=== PATIENT | female | born 1965 ===

== ENCOUNTER 2018-01-21 19:46 | Emergency (ER) | payer SELFPAY ==
[2018-01-21 20:00] VITALS: BP 139/82
--- NOTE | 2018-01-21 20:21 | UC ---
Abdominal Pain Female HPI - HPI Summary HPI Summary: This is [facility] documenting for attending Delio Gaytan MD. Pt is a 52 y/o F c/o abdominal pain onset ~1 week ago. Assoc. Sx: CP, bloated/ swollen, nausea, diarrhea, abd pain, diaphoresis. Denies: SOB, melena. Pain is located in the L flank, LL abdominal region. She also reports CP located in the epigastric region which she took omeprazole for, alleviating the pain. PMHx: Thyroid, cardiac ischemia, ventricular tach. Denies Hx of CAD or smoking. - History of Current Complaint Chief Complaint: UCAbdominalPain Stated Complaint: ABDOMINAL PAIN Time Seen by Provider: 01/21/18 20:10 Hx Obtained From: Patient Onset/Duration: Sudden Onset, Lasting Weeks - 1 week, Still Present Severity Currently: Moderate Pain Intensity: 6 Pain Scale Used: 0-10 Numeric Location: Discrete At: LLQ, Epigastric Radiates: Yes Radiates to: Flank - L Aggravating Factor(s): Nothing Alleviating Factor(s): Antacids - Omezaprole Associated Signs and Symptoms: Positive: Diaphoresis, Chest Pain, Nausea, Diarrhea, Other: - abd bloating/swelling Allergies/Adverse Reactions: Allergies Allergy/AdvReac Type Severity Reaction Status Date / Time Cephalosporins Allergy Severe Swelling Verified 01/21/18 20:01 rofecoxib [From Vioxx] Allergy Severe Edema Verified 01/21/18 20:01 Penicillins Allergy Unknown Unknown Verified 01/21/18 20:01 Reaction Details Quinolones Allergy Unknown Unknown Verified 01/21/18 20:01 Reaction Details Home Medications: Home Medications Alverini Citras/Simeticone* PRN 01/21/18 [History] Aspirin TAB* [Aspirin 325 MG TAB*] 325 mg PO DAILY 01/21/18 [History Confirmed 01/21/18] Bromazepam* PRN 01/21/18 [History] Ketoprofen PRN 01/21/18 [History] Levothyroxine TAB* [Synthroid TAB*] 50 mcg PO DAILY 01/21/18 [History Confirmed 01/21/18] Nebivolol HCl [Bystolic] 01/21/18 [History] Omeprazole CAP* [Prilosec CAP* 20 MG] PRN 01/21/18 [History] Rosuvastatin Calcium [Crestor] 10 mg PO DAILY 01/21/18 [History Confirmed ] Temmerit* 01/21/18 [History Confirmed 01/21/18] PMH/Surg Hx/FS Hx/Imm Hx Endocrine History: Thyroid Disease Other Endocrine History: NEG: DM Cardiovascular History: Other Other Cardiovascular History: NEG: CAD, cardiac ischemia, ventricular tach. - Surgical History Surgical History: Yes Surgery Procedure, Year, and Place: JAW BONE SURGERY - Family History Known Family History: Positive: Hypertension, Diabetes Negative: Cardiac Disease - Social History Occupation: Employed Full-time Lives: Alone Alcohol Use: Occasionally Substance Use Type: None Smoking Status (MU): Never Smoked Tobacco Review of Systems Constitutional: Other - POS: diaphoresis Respiratory: Other - NEG: SOB Cardiovascular: Chest Pain Gastrointestinal: Abdominal Pain, Diarrhea, Nausea, Other - POS: Bloating/ swelling Genitourinary: Other - NEG: melena All Other Systems Reviewed And Are Negative: Yes Physical Exam Triage Information Reviewed: Yes Vital Signs: Initial Vital Signs Temp 96.9 F 01/21/18 19:54 Pulse 55 01/21/18 19:54 Resp 16 01/21/18 19:54 BP 139/82 01/21/18 19:54 Pulse Ox 99 01/21/18 19:54 Vital Signs Reviewed: Yes ENT Exam: Normal Neck: Positive: Nontender Respiratory: Positive: Chest non-tender, Lungs clear, Normal breath sounds Cardiovascular: Positive: RRR, No Murmur Abdomen Description: Positive: Nontender, CVA Tenderness (L) Musculoskeletal: Positive: ROM Intact, No Edema Neurological: Positive: Alert Psychological Exam: Normal Skin Exam: Normal Abd Pain Female Course/Dx - Course Course Of Treatment: 52 yr old female with abdominal pain and chest pain. She already took Aspiring 325mg today. She is going to the ER at [facility] for futher evaluation. TORY Joe contacted and report given. - Differential Dx/Diagnosis Provider Diagnoses: abdominal pain. chest pain. hypertension Discharge - Sign-Out/Discharge Documenting (check all that apply): Patient Departure - Discharge Plan Condition: Good Disposition: TRANS HIGHER LVL OF CARE FAC Referrals: No Primary Care Phys,NOPCP [Primary Care Provider] - - Billing Disposition and Condition Condition: GOOD Disposition: Trans Higher Lvl of Care Fac
== END 2018-01-21 20:50 | disposition short-term general hospital (02) ==
LOC: UCEAST 19:46
DX: R10.32 Left lower quadrant pain (principal); R10.13 Epigastric pain; I10 Essential (primary) hypertension; R61 Generalized hyperhidrosis; R11.0 Nausea; R19.7 Diarrhea, unspecified; R00.1 Bradycardia, unspecified; E07.9 Disorder of thyroid, unspecified; Z88.6 Allergy status to analgesic agent; Z88.1 Allergy status to other antibiotic agents; Z88.0 Allergy status to penicillin; Z82.49 Family history of ischemic heart disease and other diseases of the circulatory system; Z83.3 Family history of diabetes mellitus
CPT/HCPCS: 93005; 99203; G0463

== ENCOUNTER 2018-01-21 21:09 | Emergency (ER) | payer SELFPAY ==
[2018-01-21] MEDS ORDERED: Metoclopramide IV* 5 MG/ML 2 ML VIAL IV ONE (21:27)
[2018-01-21] MEDS ORDERED: Ketorolac INJ* 30 MG/ML 1 ML VIAL IV ONE (21:27)
[2018-01-21] MEDS ORDERED: NS 0.9% 1000 ML* 1,000 ML IV ONE (21:28)
--- NOTE | 2018-01-21 21:37 | ED ---
Abdominal Pain/Female - HPI Summary HPI Summary: This is monica Radford documenting for attending Chay Solano MD. This patient is a 52 year old F BIBA from CC to ED with a chief complaint of L flank pain since about 1 week ago, worsened today. The CC is described as feeling like a kidney stone. The patient rates the pain 6/10 in severity. Symptoms alleviated by nothing. Patient reports nausea (after PO, currently resolved). Patient denies vomiting and fever. PMHx of kidney stone (2 years ago) . - History of Current Complaint Chief Complaint: EDAbdPain Stated Complaint: ABD PAIN Time Seen by Provider: 01/21/18 21:17 Hx Obtained From: Patient Onset/Duration: Sudden Onset, Lasting Weeks - 1 week ago, Still Present, Worse Since - worsened today Timing: Weeks - 1 week ago Severity Initially: Moderate Severity Currently: Moderate Pain Intensity: 6 Pain Scale Used: 0-10 Numeric Location: Flank - L flank Aggravating Factor(s): Food - nausea aggravated by PO but is currently resolved Alleviating Factor(s): Nothing Associated Signs and Symptoms: Positive: Other: - Patient reports nausea (after PO, currently resolved). Patient denies vomiting and fever. Allergies/Adverse Reactions: Allergies Allergy/AdvReac Type Severity Reaction Status Date / Time Cephalosporins Allergy Severe Swelling Verified 01/21/18 21:16 rofecoxib [From Vioxx] Allergy Severe Edema Verified 01/21/18 21:16 Penicillins Allergy Unknown Unknown Verified 01/21/18 21:16 Reaction Details Quinolones Allergy Unknown Unknown Verified 01/21/18 21:16 Reaction Details PMH/Surg Hx/FS Hx/Imm Hx Endocrine/Hematology History: Reports: Hx Thyroid Disease - HYPOTHYROID History: Reports: Hx Kidney Stones - Surgical History Surgery Procedure, Year, and Place: JAW BONE SURGERY Infectious Disease History: No Infectious Disease History: Reports: Traveled Outside the [place] in Last 30 Days - [place] - Family History Known Family History: Positive: Hypertension, Diabetes Negative: Cardiac Disease - Social History Alcohol Use: Occasionally Substance Use Type: Reports: None Smoking Status (MU): Never Smoked Tobacco Review of Systems Negative: Fever Positive: Abdominal Pain - L flank pain, Nausea - after PO, currently resolved. Negative: Vomiting All Other Systems Reviewed And Are Negative: Yes Physical Exam - Summary Physical Exam Summary: VITAL SIGNS: Reviewed. GENERAL: Patient is a well-developed and nourished FEMALE who is lying comfortable in the stretcher. Patient is not in any acute respiratory distress. HEAD AND FACE: No signs of trauma. No ecchymosis, hematomas or skull depressions. No sinus tenderness. EYES: PERRLA, EOMI x 2, No injected conjunctiva, no nystagmus. EARS: Hearing grossly intact. Ear canals and tympanic membranes are within normal limits. MOUTH: Oropharynx within normal limits. NECK: Supple, trachea is midline, no adenopathy, no JVD, no carotid bruit, no c- spine tenderness, neck with full ROM. CHEST: Symmetric, no tenderness at palpation LUNGS: Clear to auscultation bilaterally. No wheezing or crackles. CVS: Regular rate and rhythm, S1 and S2 present, no murmurs or gallops appreciated. ABDOMEN: Soft, L CVA tenderness. No signs of distention. No rebound no guarding , and no masses palpated. Bowel sounds are normal. EXTREMITIES: FROM in all major joints, no edema, no cyanosis or clubbing. NEURO: Alert and oriented x 3. No acute neurological deficits. Speech is normal and follows commands. SKIN: Dry and warm Triage Information Reviewed: Yes Vital Signs On Initial Exam: Initial Vitals Temp Pulse Resp BP Pulse Ox 97.4 F 50 16 119/80 97 01/21/18 21:15 01/21/18 21:15 01/21/18 21:15 01/21/18 21:15 01/21/18 21:15 Vital Signs Reviewed: Yes Diagnostics - Vital Signs Vital Signs Temp Pulse Resp BP Pulse Ox 01/21/18 21:15 97.4 F 50 16 119/80 97 - Laboratory Result Diagrams: 01/21/18 21:47 01/21/18 21:47 Lab Statement: Any lab studies that have been ordered have been reviewed, and results considered in the medical decision making process. - CT Abd/Pel CT CT Interpretation Completed By: Radiologist - Normal abdomen and pelvis CT. ED physician has reviewed this radiology report. Re-Evaluation - Re-Evaluation First Eval Re-Evaluation Time: 22:49 Comment: The patient is feeling better. Discussed plan for discharge. Abdominal Pain Fem Course/Dx - Course Course Of Treatment: This patient is a 52 yo F complaining of L side back/flank pain. On exam, he was given L CVA tenderness. Her CT was negative. The bloodwork and UA was negative. Therefore, the pain is most likely musculoskeletal. In the ED course, she was given Toradol and she felt better. She will be discharged and given Motrin. The patient understands and agrees. - Diagnoses Differential Diagnosis: Positive: Other - back pain Provider Diagnoses: Back pain Discharge - Sign-Out/Discharge Documenting (check all that apply): Patient Departure - Discharge Plan Condition: Stable Disposition: HOME Prescriptions: Ibuprofen TAB* [Motrin TAB* 800 MG] 800 mg PO Q6H PRN #30 tab PRN Reason: Pain Patient Education Materials: Back Pain (ED) Referrals: [facility] [Outside] (Follow up in 1-2 days.) Additional Instructions: RETURN TO THE EMERGENCY DEPARTMENT FOR CHANGING OR WORSENING SYMPTOMS.
[2018-01-21 21:54] LABS: ABS Basophils 0.1 10^3/ul (0-0.2); ABS Eosinophils 0.1 10^3/ul (0-0.6); ABS Lymphocytes 3.1 10^3/ul (1.0-4.8); ABS Monocytes 0.8 10^3/ul (0-0.8); ABS Neutrophils 5.2 10^3/ul (1.5-7.7); ABS Nucleated RBC 0 10^3/ul; Eosinophil % 1.5 % (0-6); Hematocrit 39 % (35-47); Lymphocyte % 33.3 % (25-47); Mean Corpuscular HGB Conc 33 g/dl (31-36); Mean Corpuscular Hemoglobin 31 pg (27-31); Mean Corpuscular Volume 94 fL (80-97); Mean Platelet Volume 8.8 um3 (7.4-10.4); Nucleated Red Blood Cells % 0.1; Platelet Count 221 10^3/ul (150-450); Red Blood Count 4.18 10^6/ul (4.00-5.40); Red Cell Distribution Width 15 % (10.5-15); White Blood Count 9.2 10^3/ul (3.5-10.8)
[2018-01-21 22:12] LABS: EGFR Non-African American 66.3 (>60)
[2018-01-21 22:25] LABS: Urine Appearance Clear; Urine Blood Negative (Negative); Urine Color Straw; Urine Ketones Negative (Negative); Urine Protein Negative (Negative); Urine Specific Gravity 1.004 (1.010-1.030); Urine Urobilinogen Negative (Negative)
[2018-01-21 23:08] VITALS: BP 138/65
--- NOTE | 2018-01-22 07:32 | RAD ---
Indication: Abdominal pain. CT of the abdomen and pelvis was performed without oral or IV contrast administration. Coronal and sagittal reconstructed images were obtained. The lung bases demonstrate no pleural fluid, nodules or masses. Heart is of normal size without evidence of pericardial effusion. Liver is normal in size. No focal lesions or intrahepatic ductal dilatation is noted. The gallbladder demonstrates no calcified gallstones. No pericholecystic fluid or gallbladder wall thickening is noted. No intrahepatic duct dilatation is noted. The common duct is not dilated. The pancreas demonstrates no mass or pancreatic duct dilatation. The spleen is normal in size. No adrenal masses are noted. The kidneys demonstrate no evidence of hydronephrosis in either kidney. No focal masses are noted in either kidney. Study is limited by lack of IV contrast. Aorta and inferior vena cava are unremarkable without evidence of aneurysmal dilatation of the abdominal aorta. No retroperitoneal adenopathy is noted. CT of the pelvis demonstrates no pelvic adenopathy. The uterus and ovaries are grossly unremarkable with no evidence of adnexal masses. The appendix is visualized and is air-filled and normal-appearing. The small bowel demonstrates no abnormal dilatation. The stomach is distended. No evidence of focal wall thickening is noted. The colon is filled with stool. The bony structures demonstrate no lytic lesions. No fractures noted. IMPRESSION: No evidence of obstructive uropathy. No dilated loops of bowel are noted. Normal appendix.
== END 2018-01-21 23:07 | disposition home or self-care (01) ==
LOC: ED 21:09
DX: R10.84 Generalized abdominal pain (principal); R11.0 Nausea; M54.9 Dorsalgia, unspecified
CPT/HCPCS: 36415; 74176; 80053; 81003; 82150; 83690; 85025; 86140; 96374; 96375; 99282; J1885; J2765